=== PATIENT | female | born 2000 | race Two or more races ===

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

== ENCOUNTER 2020-10-21 15:57 | Emergency (ER) | payer MEDICAID, OTHER ==
[~2020-10-21] VITALS: Ht 170.2 cm; Wt 81.6 kg
--- NOTE | 2020-10-21 16:20 | NUR ---
TO ER BED 16, BIBA 889 "was at work witnesses say she was feeling weak and was assisted to the ground", per pt she passed out and hit head at 2 pm, sat down/rest then collapsed again, a&ox4, breathing even
[2020-10-21] MEDS ORDERED: IV NS 0.9% 1,000 ML BAG IV ONE ×2 (16:30)
[2020-10-21] MEDS ORDERED: ACETAMINOPHEN ES 500 MG TABLET PO ONE (16:30)
--- NOTE | 2020-10-21 16:45 | NUR ---
saline lock established and blood drawn
[2020-10-21] MEDS ORDERED: ACETAMINOPHEN ES 500 MG TABLET ONE (17:00)
[2020-10-21 17:02] LABS: BASOPHILS % (AUTO) 0.6 % (0.0-2.0); EOSINOPHILS % (AUTO) 1.1 % (0.0-6.0); HEMATOCRIT 39 % (33-45); HEMOGLOBIN 12.8 g/dL (11.5-14.8); LYMPHOCYTES # (AUTO) 1.8 K/uL (0.8-4.8); LYMPHOCYTES % (AUTO) 24.1 % (20.0-44.0); MEAN CORPUSCULAR HGB CONC 33 g/dl (31.0-36.0); MEAN CORPUSCULAR VOLUME 87 fL (82-100); MONOCYTES # (AUTO) 0.7 K/uL (0.1-1.30); MONOCYTES % (AUTO) 10.1 % (2.0-12.0); NEUTROPHILS # (AUTO) 4.7 K/uL (1.8-8.9); NEUTROPHILS % (AUTO) 64.1 % (43.0-81.0); PLATELET COUNT (AUTO) 276 K/uL (150-450); RED BLOOD CELL COUNT(AUTO) 4.46 MIL/uL (4.0-5.2); WHITE BLOOD COUNT (AUTO) 7.4 K/uL (4.3-11.0)
[2020-10-21 17:12] LABS: CALCIUM, SERUM 9.1 mg/dL (8.5-10.1); CARBON DIOXIDE 25 mmol/L (21-32); CHLORIDE 106 mmol/L (98-107); CREATININE 0.8 mg/dL (0.6-1.3); GLUCOSE 91 mg/dL (74-106); SODIUM SERUM 140 mmol/L (136-145); UREA NITROGEN, BLOOD 15 mg/dL (7-18)
--- NOTE | 2020-10-21 17:20 | NUR ---
TAKEN TO CT
--- NOTE | 2020-10-21 18:00 | NUR ---
States "Feeling Better" NAD Patient discharged to home in stable condition. Written and verbal after care instructions given. Patient verbalizes understanding of instruction.
[2020-10-21 18:32] VITALS: BP 132/71
== END 2020-10-21 18:33 | disposition home or self-care (01) ==
LOC: ER 16:03
DX: S09.8XXA Other specified injuries of head, initial encounter (principal); R55 Syncope and collapse; R51.9 Headache, unspecified; W18.39XA Other fall on same level, initial encounter; Y93.89 Activity, other specified; Y92.89 Other specified places as the place of occurrence of the external cause; Y99.8 Other external cause status
CPT/HCPCS: 36415; 70450; 80048; 82962; 84484; 84703; 85025; 93005; 96360; 99285; J7030

== ENCOUNTER 2020-10-24 15:20 | Emergency (ER) | payer OTHER ==
[~2020-10-24] VITALS: Ht 165.1 cm; Wt 80.7 kg
--- NOTE | 2020-10-24 15:41 | NUR ---
TO ER BED 4, BIB FAMILY C/O DIZZINESS, FAINTING SPELLS SINCE SATURDAY, AAOX4, BREATHING EVEN AND UNLABORED, ATTACHED TO MONITOR, CHANGED INTO A GOWN
[2020-10-24] MEDS: MECLIZINE HCL 12.5 MG TABLET PO ONE (16:31)
[2020-10-24] MEDS: ACETAMINOPHEN 325 MG TABLET PO ONE (16:31)
[2020-10-24] MEDS: IV NS 0.9% 1,000 ML IV ONE (16:31)
[2020-10-24 16:54] LABS: BASOPHILS # (AUTO) 0.1 K/uL (0.0-0.2); BASOPHILS % (AUTO) 0.6 % (0.0-2.0); EOSINOPHILS % (AUTO) 1.1 % (0.0-6.0); HEMATOCRIT 42 % (33-45); HEMOGLOBIN 13.9 g/dL (11.5-14.8); LYMPHOCYTES % (AUTO) 22.9 % (20.0-44.0); MEAN CORPUSCULAR HGB CONC 33 g/dl (31.0-36.0); MEAN CORPUSCULAR VOLUME 87 fL (82-100); MONOCYTES # (AUTO) 0.8 K/uL (0.1-1.30); MONOCYTES % (AUTO) 8.9 % (2.0-12.0); NEUTROPHILS # (AUTO) 5.9 K/uL (1.8-8.9); NEUTROPHILS % (AUTO) 66.5 % (43.0-81.0); PLATELET COUNT (AUTO) 270 K/uL (150-450); RED BLOOD CELL COUNT(AUTO) 4.85 MIL/uL (4.0-5.2); WHITE BLOOD COUNT (AUTO) 8.8 K/uL (4.3-11.0)
[2020-10-24 17:00] LABS: CALCIUM, SERUM 9.2 mg/dL (8.5-10.1); CARBON DIOXIDE 25 mmol/L (21-32); CHLORIDE 104 mmol/L (98-107); CREATININE 0.5 mg/dL (0.6-1.3); GLUCOSE 86 mg/dL (74-106); POTASSIUM 4.1 mmol/L (3.5-5.1); SODIUM SERUM 139 mmol/L (136-145); UREA NITROGEN, BLOOD 11 mg/dL (7-18)
[2020-10-24 17:01] LABS: ALCOHOL, BLOOD < 3 mg/dL (0-0)
[2020-10-24 17:06] LABS: ALANINE AMINOTRANSFERASE 38 U/L (12-78); ALBUMIN 4.1 g/dL (3.4-5.0); ALKALINE PHOSPHATASE 100 U/L (46-116); ASPARTATE AMINOTRANSFERASE 19 U/L (15-37); BILIRUBIN,DIRECT 0.1 mg/dL (0.0-0.2); BILIRUBIN,TOTAL 0.3 mg/dL (0.2-1.0); TOTAL PROTEIN, SERUM 8.3 g/dL (6.4-8.2)
[2020-10-24] MEDS ORDERED: MECLIZINE HCL 25 MG TABLET ONE (17:08)
[2020-10-24] MEDS ORDERED: ACETAMINOPHEN 325 MG TABLET ONE (17:08)
--- NOTE | 2020-10-24 17:13 | NUR ---
URINE COLLECTED AND SENT
[2020-10-24 17:21] LABS: CREATINE KINASE, TOTAL 102 U/L (26-192)
[2020-10-24] MEDS ORDERED: MECL-159 PO (18:56)
[2020-10-24 19:17] VITALS: BP 114/54
== END 2020-10-24 19:17 | disposition home or self-care (01) ==
LOC: ER 15:28
DX: R55 Syncope and collapse (principal); R94.31 Abnormal electrocardiogram [ECG] [EKG]; E86.0 Dehydration; R51.9 Headache, unspecified; R42 Dizziness and giddiness; Z60.2 Problems related to living alone
CPT/HCPCS: 36415; 80048; 80076; 80307; 80320; 82550; 83735; 84484; 84703; 85025; 85378; 93005 ×2; 96360; 99284; J8597; G0480; J7030